=== PATIENT | female | born 1935 | race Caucasian/White ===

== ENCOUNTER 2016-12-17 09:53 | Inpatient (IN) | payer MEDICARE, BC ==
[2016-12-17 11:00] LABS: CHLORIDE,CL 106 mEq/L (98-106); SODIUM,NA 144 mEq/L (136-145)
--- NOTE | 2016-12-17 12:11 | EDM.PDOC ---
ED HPI GENERAL MEDICAL PROBLEM - General Chief Complaint: Back Pain or Injury Stated Complaint: low back pain, increased need of assistance Time Seen by Provider: 12/17/16 10:19 Source of Information: Reports: Patient, EMS, Family (sister) History Limitations: Reports: Altered Mental Status - History of Present Illness INITIAL COMMENTS - FREE TEXT/NARRATIVE: Pt was transferred here per ambulance from the [facility] in [place] as she is having significant pain in the lower back that is not controlled on her oral meds and this is also causing her to not be able to be up and care for self. SHe no longer qualifies to be basic care and she only has one sister in the area who would not be able to care for her. Sister feels that she should be admitted to [facility] when able. EMS report states that she was not able to get up out of bed and doesn't remember to take her meds. SIster has noted that she has been getting weaker over the last couple of weeks after falling and sustaining a L1 fracture and was seen in the ER in [place] and then fell again and has L2 compression fracture. She complains of pain depending on how she moves. Pt is confused as to place and time. She could tell me her name and she recognized her sister when she arrived. Does not understand why she was brought here or where she is. Onset: Gradual Duration: Day(s): Location: Reports: Back Associated Symptoms: Reports: Confusion - Related Data Allergies Allergy/AdvReac Type Severity Reaction Status Date / Time No Known Allergies Allergy Verified 12/17/16 09:44 Home Meds: Home Meds Ferrous Sulfate 325 mg PO DAILY 12/17/16 [History] Hydrocodone/Acetaminophen [[place] 5-325] 1 tab PO TID 12/17/16 [History] Magnesium Hydroxide [Milk of Magnesia] 15 ml PO DAILY PRN 12/17/16 [History] Naproxen Sodium [Aleve] 220 mg PO BID 12/17/16 [History] Polyethylene Glycol 3350 [Miralax] 17 gm PO DAILY 12/17/16 [History] Pravastatin [Pravachol] 20 mg PO DAILY 12/17/16 [History] Sennosides/Docusate Sodium [Stool Softener-Laxative] 8.6 mg PO ASDIRECTED [History] Sodium Phosphate 1 applic RECTAL DAILY PRN 12/17/16 [History] predniSONE [Prednisone] 5 mg PO DAILY 12/17/16 [History] Past Medical History HEENT History: Reports: Impaired Vision Cardiovascular History: Reports: High Cholesterol Gastrointestinal History: Reports: Chronic Constipation Genitourinary History: Reports: Urinary Incontinence Musculoskeletal History: Reports: Back Pain, Chronic, Fracture, Osteoarthritis, Other (See Below) Other Musculoskeletal History: Polymyalgia rheumiatica, L1-L2 compression fracture Psychiatric History: Reports: Dementia Hematologic History: Reports: Anemia Oncologic (Cancer) History: Reports: Breast Dermatologic History: Reports: Other (See Below) Other Dermatologic History: Toe ulcer right foot. - Past Surgical History Female Surgical History: Reports: None Musculoskeletal Surgical History: Reports: Other (See Below) Other Musculoskeletal Surgeries/Procedures:: cortisone injection to right knee in May 2016 Oncologic Surgical History: Reports: Mastectomy Social & Family History - Family History Family Medical History: Noncontributory - Tobacco Use Smoking Status *Q: Never Smoker - Recreational Drug Use Recreational Drug Use: No ED ROS GENERAL - Review of Systems Review Of Systems: See Below Constitutional: Denies: Fever, Chills HEENT: Reports: No Symptoms Respiratory: Denies: Shortness of Breath, Cough Cardiovascular: Denies: Chest Pain, Edema GI/Abdominal: Reports: Decreased Appetite. Denies: Abdominal Pain, Constipation , Diarrhea : Reports: Incontinence Musculoskeletal: Reports: Back Pain Skin: Reports: No Symptoms Neurological: Reports: Confusion Psychiatric: Reports: Confusion ED EXAM,LOWER BACK PAIN/INJURY - Physical Exam Exam: See Below Exam Limited By: No Limitations General Appearance: WD/WN, Mild Distress Ears: Normal External Exam, Normal Canal, Normal TMs Nose: Normal Inspection, Normal Mucosa Throat/Mouth: Normal Inspection, Normal Oropharynx, Normal Voice, No Airway Compromise Head: Atraumatic, Normocephalic Neck: Normal Inspection, Supple, Non-Tender, Full Range of Motion Respiratory/Chest: No Respiratory Distress, Lungs Clear, Normal Breath Sounds Cardiovascular: Normal Peripheral Pulses, Regular Rate, Rhythm, No Edema, No Murmur GI/Abdominal: Normal Bowel Sounds, Soft, Non-Tender Back Exam: Normal Inspection, Other (tender to low lumbar area with palpation.) Extremities: Normal Inspection, Normal Range of Motion, Non-Tender, No Pedal Edema, Normal Capillary Refill Neurological: Alert, Other (oriented to person.) Skin Exam: Warm, Dry, Intact Course - Vital Signs Last Recorded V/S: Last Vital Signs Temp 97.3 F 12/17/16 12:24 Pulse 97 12/17/16 12:24 Resp 18 12/17/16 12:24 BP 157/94 H 12/17/16 12:24 Pulse Ox 95 12/17/16 12:24 - Orders/Labs/Meds Labs: Laboratory Tests 12/17/16 12/17/16 12/17/16 Range/Units 10:45 10:45 11:20 WBC 7.4 (5.0-10.0) 10^3/uL RBC 4.31 (4.00-5.50) 10^6/uL Hgb 11.4 L (12.0-16.0) g/dL Hct 35.9 L (37.0-47.0) % MCV 83.3 (82.0-94.0) fL MCH 26.5 L (27.0-32.0) pg MCHC 31.8 L (33.0-38.0) g/dL RDW Coeff of Lulu 16.0 H (11.0-15.0) % Plt Count 362 (150-400) 10^3/uL Neut % (Auto) 74.6 (35-85) % Lymph % (Auto) 13.7 (10-55) % [place] % (Auto) 9.0 (0-16) % Eos % (Auto) 2.2 (0-5) % Baso % (Auto) 0.5 (0-3) % Neut # (Auto) 5.53 (1.80-7.00) 10^3/uL Lymph # (Auto) 1.02 (1.00-4.80) 10^3/uL [place] # (Auto) 0.67 (0.00-0.80) 10^3/uL Eos # (Auto) 0.16 (0.00-0.45) 10^3/uL Baso # (Auto) 0.04 10^3/uL Sodium 144 (136-145) mEq/L Potassium 3.4 L (3.5-5.0) mEq/L Chloride 106 (98-106) mEq/L Carbon Dioxide 30 (21-32) mmol/L BUN 14 (7-18) mg/dL Creatinine 0.6 (0.6-1.0) mg/dL Est Cr Clr Drug Dosing 66.17 mL/min Estimated GFR (MDRD) > 60 (>=60) mL/min Glucose 106 H (75-99) mg/dL Calcium 8.6 (8.4-10.1) mg/dL C-Reactive Protein 3.4 H (0.2-0.8) mg/dL Urine Color Yellow (YELLOW) Urine Appearance Slightly cloudy (CLEAR) Urine pH 7.5 (4.5-8.0) Ur Specific [place] 1.015 (1.003-1.020) Urine Protein Negative (NEGATIVE) mg/dL Urine Glucose (UA) Negative (NEGATIVE) mg/dL Urine Ketones Negative (NEGATIVE) mg/dL Urine Occult Blood Negative (NEGATIVE) Urine Nitrite Negative (NEGATIVE) Urine Bilirubin Negative (NEGATIVE) Urine Urobilinogen 0.2 (0.2-1.0) EU/dL Ur Leukocyte Esterase Negative (NEGATIVE) Urine RBC Not seen (0-5) /HPF Urine WBC Not seen (0-5) /HPF Ur Epithelial Cells Few H (NOT SEEN) /HPF Amorphous Sediment Many H (NOT SEEN) /HPF Departure - Departure Time of Disposition: 12:17 Disposition: Admitted As Inpatient 66 Condition: Good Clinical Impression: Inadequate pain control Compression fracture of first lumbar vertebra Qualifiers: Encounter type: subsequent encounter Fracture type: closed Fracture healing: with delayed healing Qualified Code(s): S32.010G - Wedge compression fracture of first lumbar vertebra, subsequent encounter for fracture with delayed healing Compression fracture of L2 lumbar vertebra Qualifiers: Encounter type: subsequent encounter Fracture type: closed Fracture healing: with delayed healing Qualified Code(s): S32.020G - Wedge compression fracture of second lumbar vertebra, subsequent encounter for fracture with delayed healing - Discharge Information - Problem List & Annotations (1) Compression fracture of L2 lumbar vertebra SNOMED Code(s): 65177933348991175 Code(s): S32.020A - WEDGE COMPRESSION FRACTURE OF SECOND LUMBAR VERTEBRA, INIT Status: Acute Priority: High Current Visit: Yes Qualifiers: Encounter type: subsequent encounter Fracture type: closed Fracture healing: with delayed healing Qualified Code(s): S32.020G - Wedge compression fracture of second lumbar vertebra, subsequent encounter for fracture with delayed healing (2) Compression fracture of first lumbar vertebra SNOMED Code(s): 606808771 Code(s): S32.010A - WEDGE COMPRESSION FRACTURE OF FIRST LUMBAR VERTEBRA, INIT Status: Acute Priority: High Current Visit: Yes Qualifiers: Encounter type: subsequent encounter Fracture type: closed Fracture healing: with delayed healing Qualified Code(s): S32.010G - Wedge compression fracture of first lumbar vertebra, subsequent encounter for fracture with delayed healing (3) Inadequate pain control SNOMED Code(s): 62578431 Code(s): R52 - PAIN, UNSPECIFIED Status: Acute Priority: High Current Visit: Yes - Assessment/Plan Admission H&P: Please use this note as an admission H&P Plan: admit to acute care to get pain control with IV meds Plan on transferring to [facility] when bed available as she can not return to [facility]
[2016-12-17] MEDS ORDERED: Sodium Chloride 0.9% 10 ML Syringe FLUSH PRN (12:34)
[2016-12-17] MEDS ORDERED: Magnesium Hydroxide 400 MG/5 ML Susp 30 ML Cup PO PRN (12:34)
[2016-12-17] MEDS ORDERED: Acetaminophen 325 MG Tab PO PRN (12:34)
[2016-12-17] MEDS ORDERED: fentaNYL 100 MCG/2 ML SDV IVPUSH ONE (12:35)
[2016-12-17] MEDS: Enoxaparin 30 MG/0.3 ML Syringe SUBCUT SCH (13:43)
[2016-12-17] MEDS: fentaNYL 100 MCG/2 ML SDV IVPUSH SCH (19:31)
[2016-12-17] MEDS: Simvastatin 10 MG Tab PO SCH (19:34)
[2016-12-18] MEDS: Polyethylene Glycol 3350 Powder 17 GM Packet PO SCH (08:21)
[2016-12-18] MEDS: Ferrous Sulfate 324 MG Tab.EC PO SCH (08:21)
[2016-12-18] MEDS: Enoxaparin 30 MG/0.3 ML Syringe SUBCUT SCH (08:21)
[2016-12-18] MEDS: predniSONE 5 MG Tab PO SCH (08:21)
[2016-12-18] MEDS: fentaNYL 100 MCG/2 ML SDV IVPUSH SCH ×2 (08:22→20:03)
[2016-12-18] MEDS ORDERED: Tuberculin, PPD 5 Units/0.1 ML 1 ML MDV IDERM ONE (10:38)
--- NOTE | 2016-12-18 12:54 | PCM.PN ---
- General Info Date of Service: 12/18/16 Admission Dx/Problem (Free Text): Back Pain Functional Status: Reports: Pain Controlled, Tolerating Diet, Ambulating (short distances) - Review of Systems General: Reports: Weakness. Denies: Fever, Fatigue HEENT: Reports: No Symptoms Pulmonary: Reports: No Symptoms Cardiovascular: Reports: No Symptoms Gastrointestinal: Reports: No Symptoms Genitourinary: Reports: No Symptoms Musculoskeletal: Reports: Back Pain Skin: Reports: No Symptoms Neurological: Reports: Confusion - Patient Data Vitals - Most Recent: Last Vital Signs Temp 97.6 F 12/18/16 07:36 Pulse 86 12/18/16 07:36 Resp 16 12/18/16 07:36 BP 149/83 H 12/18/16 07:36 Pulse Ox 96 12/18/16 07:36 Weight - Most Recent: 144 lb 6.4 oz I&O - Last 24 Hours: Intake & Output 12/17/16 12/18/16 12/18/16 22:59 06:59 14:59 Intake Total 300 Balance 300 Med Orders - Current: Current Medications Acetaminophen (Tylenol) 650 mg PO Q4H PRN PRN Reason: Pain (Mild 1-3)/fever Enoxaparin Sodium (Lovenox) 30 mg SUBCUT Q24H [facility] Last Admin: 12/18/16 08:21 Dose: 30 mg Fentanyl (Sublimaze) 25 mcg IVPUSH Q12H [facility] Last Admin: 12/18/16 08:22 Dose: 25 mcg Ferrous Sulfate (Ferrous Sulfate) 324 mg PO DAILY [facility] Last Admin: 12/18/16 08:21 Dose: 324 mg Magnesium Hydroxide (Milk Of Magnesia) 15 ml PO DAILY PRN PRN Reason: Constipation Polyethylene Glycol (Miralax) 17 gm PO DAILY [facility] Last Admin: 12/18/16 08:21 Dose: 17 gm Prednisone (Prednisone) 5 mg PO DAILY [facility] Last Admin: 12/18/16 08:21 Dose: 5 mg Senna/Docusate Sodium (Senna Plus) 1 tab PO DAILY [facility] Last Admin: 12/18/16 08:21 Dose: 1 tab Simvastatin (Zocor) 10 mg PO BEDTIME [facility] Last Admin: 12/17/16 19:34 Dose: 10 mg Sodium Chloride (Saline Flush) 10 ml FLUSH ASDIRECTED PRN PRN Reason: Keep Vein Open Discontinued Medications Fentanyl (Sublimaze) 25 mcg IVPUSH ONETIME ONE Stop: 12/17/16 12:36 Last Admin: 12/17/16 13:46 Dose: Not Given Tuberculin PPD (Aplisol) 5 unit IDERM ONETIME ONE Stop: 12/18/16 10:39 Last Admin: 12/18/16 11:44 Dose: 5 unit - Exam General: Alert, Oriented (oriented to person only) HEENT: Mucous Membr. Moist/[place] Neck: Supple Lungs: Clear to Auscultation, Normal Respiratory Effort Cardiovascular: Regular Rate, Regular Rhythm GI/Abdominal Exam: Normal Bowel Sounds, Soft, Non-Tender Back Exam: Decreased Range of Motion, Vertebral Tenderness Extremities: Normal Inspection, No Pedal Edema Skin: Warm, Dry Neurological: No New Focal Deficit Psy/Mental Status: Alert, Other (inappropriate responses to conversation) - Problem List & Annotations (1) Compression fracture of L2 lumbar vertebra SNOMED Code(s): 93714024269627173 Code(s): S32.020A - WEDGE COMPRESSION FRACTURE OF SECOND LUMBAR VERTEBRA, INIT Status: Acute Priority: High Current Visit: Yes Qualifiers: Encounter type: subsequent encounter Fracture type: closed Fracture healing: with delayed healing Qualified Code(s): S32.020G - Wedge compression fracture of second lumbar vertebra, subsequent encounter for fracture with delayed healing (2) Compression fracture of first lumbar vertebra SNOMED Code(s): 946846433 Code(s): S32.010A - WEDGE COMPRESSION FRACTURE OF FIRST LUMBAR VERTEBRA, INIT Status: Acute Priority: High Current Visit: Yes Qualifiers: Encounter type: subsequent encounter Fracture type: closed Fracture healing: with delayed healing Qualified Code(s): S32.010G - Wedge compression fracture of first lumbar vertebra, subsequent encounter for fracture with delayed healing - Problem List Review Problem List Initiated/Reviewed/Updated: Yes - Assessment Assessment:: L1 Compression fracture L2 Compression fracture - Plan Plan:: Patient resting well while in chair. Does have increased pain with any transfers as noted per nursing staff. Patient is oriented to person only and when asked specific questions related to her history of falls or pain or living situation, has inappropriate comments. Was having more difficult caring for herself and transferring due to compression fractures but also due to history of dementia. Unable to be still in the basic care facility due to this. She is currently receiving IV Fentanyl and staff has noted this has allowed for easier movement for the patient. Otherwise, denies any other ROS complaints. Will continue with PT evaluation today and pain control. [facility].
[2016-12-18] MEDS: Simvastatin 10 MG Tab PO SCH (20:04)
[2016-12-18] MEDS: Acetaminophen/HYDROcodone 325-5 MG Tab PO PRN (23:53)
[2016-12-19] MEDS: Enoxaparin 30 MG/0.3 ML Syringe SUBCUT SCH (07:39)
[2016-12-19] MEDS: fentaNYL 100 MCG/2 ML SDV IVPUSH SCH ×2 (07:39→19:35)
[2016-12-19] MEDS: Ferrous Sulfate 324 MG Tab.EC PO SCH (07:39)
[2016-12-19] MEDS: predniSONE 5 MG Tab PO SCH (07:39)
[2016-12-19] MEDS: Polyethylene Glycol 3350 Powder 17 GM Packet PO SCH (07:41)
--- NOTE | 2016-12-19 09:31 | PCM.PN ---
- General Info Date of Service: 12/19/16 Functional Status: Reports: Tolerating Diet, Ambulating (Currently after examination. ) - Review of Systems General: Reports: No Symptoms HEENT: Reports: No Symptoms Pulmonary: Reports: No Symptoms Cardiovascular: Reports: No Symptoms Gastrointestinal: Reports: No Symptoms Genitourinary: Reports: No Symptoms Musculoskeletal: Reports: Back Pain Skin: Reports: No Symptoms Neurological: Reports: No Symptoms Psychiatric: Reports: No Symptoms - Patient Data Vitals - Most Recent: Last Vital Signs Temp 97.2 F 12/19/16 07:51 Pulse 86 12/19/16 07:51 Resp 18 12/19/16 07:51 BP 158/81 H 12/19/16 07:51 Pulse Ox 94 L 12/19/16 07:51 Weight - Most Recent: 144 lb 6.4 oz Med Orders - Current: Current Medications Acetaminophen (Tylenol) 650 mg PO Q4H PRN PRN Reason: Pain (Mild 1-3)/fever Hydrocodone Bitart/Acetaminophen ([place] 325-5 Mg) 1 - 2 tab PO Q6H PRN PRN Reason: Pain Last Admin: 12/18/16 23:53 Dose: 1 tab Enoxaparin Sodium (Lovenox) 30 mg SUBCUT Q24H [facility] Last Admin: 12/19/16 07:39 Dose: 30 mg Fentanyl (Sublimaze) 25 mcg IVPUSH Q12H [facility] Last Admin: 12/19/16 07:39 Dose: 25 mcg Ferrous Sulfate (Ferrous Sulfate) 324 mg PO DAILY [facility] Last Admin: 12/19/16 07:39 Dose: 324 mg Magnesium Hydroxide (Milk Of Magnesia) 15 ml PO DAILY PRN PRN Reason: Constipation Polyethylene Glycol (Miralax) 17 gm PO DAILY [facility] Last Admin: 12/19/16 07:41 Dose: Not Given Prednisone (Prednisone) 5 mg PO DAILY [facility] Last Admin: 12/19/16 07:39 Dose: 5 mg Senna/Docusate Sodium (Senna Plus) 1 tab PO DAILY [facility] Last Admin: 12/19/16 07:41 Dose: 1 tab Simvastatin (Zocor) 10 mg PO BEDTIME [facility] Last Admin: 12/18/16 20:04 Dose: 10 mg Sodium Chloride (Saline Flush) 10 ml FLUSH ASDIRECTED PRN PRN Reason: Keep Vein Open Discontinued Medications Fentanyl (Sublimaze) 25 mcg IVPUSH ONETIME ONE Stop: 12/17/16 12:36 Last Admin: 12/17/16 13:46 Dose: Not Given Tuberculin PPD (Aplisol) 5 unit IDERM ONETIME ONE Stop: 12/18/16 10:39 Last Admin: 12/18/16 11:44 Dose: 5 unit - Exam General: Alert, Cooperative, No Acute Distress, Other (not oriented. History of dementia. ) Neck: Supple Lungs: Clear to Auscultation, Normal Respiratory Effort Cardiovascular: Regular Rate, Regular Rhythm GI/Abdominal Exam: Normal Bowel Sounds, Soft, Non-Tender, No Distention Back Exam: Normal Inspection, Decreased Range of Motion, Vertebral Tenderness ( mild lower lumbar). No: Muscle Spasm Extremities: Normal Inspection, Normal Range of Motion, Non-Tender, No Pedal Edema, Normal Capillary Refill Peripheral Pulses: 2+: Posterior Tibial (L), Posterior Tibial (R), Dorsalis Pedis (L), Dorsalis Pedis (R) Skin: Warm, Dry, Intact Neurological: No New Focal Deficit Psy/Mental Status: Alert, Normal Affect, Normal Mood - Problem List Review Problem List Initiated/Reviewed/Updated: Yes - My Orders Last 24 Hours: My Active Orders 12/18/16 23:38 Acetaminophen/HYDROcodone [[place] 325-5 MG] 1 - 2 tab PO Q6H PRN 12/19/16 05:00 BMP [BASIC METABOLIC PANEL,BMP] [CHEM] DAILY CBC WITH AUTO DIFF [HEME] DAILY 12/19/16 07:53 K Pad [Heat Therapy] [OM.PC] Routine 12/20/16 05:00 BMP [BASIC METABOLIC PANEL,BMP] [CHEM] DAILY CBC WITH AUTO DIFF [HEME] DAILY 12/21/16 05:00 BMP [BASIC METABOLIC PANEL,BMP] [CHEM] DAILY CBC WITH AUTO DIFF [HEME] DAILY - Assessment Assessment:: L1 Compression fracture L2 Compression fracture - Plan Plan:: Patient resting well while in chair. Does have increased pain with any transfers as noted per nursing staff. Patient is oriented to person only and when asked specific questions related to her history of falls or pain or living situation, has inappropriate comments. Was having more difficult caring for herself and transferring due to compression fractures but also due to history of dementia. Unable to be still in the basic care facility due to this. She is currently receiving IV Fentanyl and staff has noted this has allowed for easier movement for the patient. Otherwise, denies any other ROS complaints. Will continue with PT evaluation today and pain control. [facility]. 12/19/2016 [id number] This patient is a pleasant 81 year old female that was admitted for compression fractures of the lumbar spine. The patient due to pain has been unable to take care of herself at home or in a basic care environment. I did receive a phone call about 2am this morning about this patient. I was instructed that her pain was not being controlled this morning with just the Fentanyl alone. They reported the Fentanyl was initially working, then was wearing off. I ordered her [place] as well. Today, the patient is sitting in bed. She appears comfortable. Although, movement of sitting up in bed does increase her pain. She denies urinary/bowel incontinence. She denies saddle parathesia. She denies any numbness of tingling or loss of function of extremities. I did review labs which are unremarkable. The patient with assistance after my exam was able to ambulate in the hallway. Will continue her admit for pain control in attempt to get her more comfortable. Will also continue admit for [facility] placement as she is unsafe to return to her current living situation. Patient is disoriented. She said the year is 9,000 something, and does not know her location.
[2016-12-19 09:59] LABS: CHLORIDE,CL 103 mEq/L (98-106); SODIUM,NA 141 mEq/L (136-145)
[2016-12-19] MEDS: Acetaminophen/HYDROcodone 325-5 MG Tab PO PRN (13:09)
[2016-12-19] MEDS: Simvastatin 10 MG Tab PO SCH (19:35)
[2016-12-20] MEDS: fentaNYL 100 MCG/2 ML SDV IVPUSH SCH ×2 (07:59→19:38)
[2016-12-20] MEDS: Ferrous Sulfate 324 MG Tab.EC PO SCH (07:59)
[2016-12-20] MEDS: predniSONE 5 MG Tab PO SCH (07:59)
[2016-12-20] MEDS: Polyethylene Glycol 3350 Powder 17 GM Packet PO SCH (07:59)
[2016-12-20] MEDS: Enoxaparin 30 MG/0.3 ML Syringe SUBCUT SCH (07:59)
[2016-12-20 08:33] LABS: CHLORIDE,CL 105 mEq/L (98-106); SODIUM,NA 143 mEq/L (136-145)
--- NOTE | 2016-12-20 10:02 | PCM.PN ---
- General Info Date of Service: 12/20/16 Functional Status: Reports: Pain Controlled, Tolerating Diet, Ambulating (with assistance), Other (Sitting in chair at the nurses station. ) - Review of Systems General: Reports: No Symptoms HEENT: Reports: No Symptoms Pulmonary: Reports: No Symptoms Cardiovascular: Reports: No Symptoms Gastrointestinal: Reports: No Symptoms Genitourinary: Reports: No Symptoms Musculoskeletal: Reports: No Symptoms Skin: Reports: No Symptoms Neurological: Reports: No Symptoms (chronic confusion. ) Psychiatric: Reports: No Symptoms - Patient Data Vitals - Most Recent: Last Vital Signs Temp 98.2 F 12/20/16 08:00 Pulse 82 12/20/16 08:00 Resp 18 12/20/16 08:00 BP 112/62 12/20/16 08:00 Pulse Ox 96 12/20/16 08:00 Weight - Most Recent: 144 lb 6.4 oz Lab Results Last 24 Hours: Laboratory Results - last 24 hr 12/19/16 12/19/16 12/20/16 Range/Units 05:00 05:00 05:00 WBC 9.0 6.7 (5.0-10.0) 10^3/uL RBC 4.52 4.51 (4.00-5.50) 10^6/uL Hgb 12.2 12.1 (12.0-16.0) g/dL Hct 38.1 37.9 (37.0-47.0) % MCV 84.3 84.0 (82.0-94.0) fL MCH 27.0 26.8 L (27.0-32.0) pg MCHC 32.0 L 31.9 L (33.0-38.0) g/dL RDW Coeff of Lulu 16.3 H 16.2 H (11.0-15.0) % Plt Count 398 398 (150-400) 10^3/uL Neut % (Auto) 79.8 67.0 (35-85) % Lymph % (Auto) 10.5 20.0 (10-55) % [place] % (Auto) 7.6 9.8 (0-16) % Eos % (Auto) 1.7 2.5 (0-5) % Baso % (Auto) 0.4 0.7 (0-3) % Neut # (Auto) 7.15 H 4.49 (1.80-7.00) 10^3/uL Lymph # (Auto) 0.94 L 1.34 (1.00-4.80) 10^3/uL [place] # (Auto) 0.68 0.66 (0.00-0.80) 10^3/uL Eos # (Auto) 0.15 0.17 (0.00-0.45) 10^3/uL Baso # (Auto) 0.04 0.05 10^3/uL Sodium 141 (136-145) mEq/L Potassium 3.6 (3.5-5.0) mEq/L Chloride 103 (98-106) mEq/L Carbon Dioxide 27 (21-32) mmol/L BUN 16 (7-18) mg/dL Creatinine 0.8 (0.6-1.0) mg/dL Est Cr Clr Drug Dosing 49.63 mL/min Estimated GFR (MDRD) > 60 (>=60) mL/min Glucose 122 H (75-99) mg/dL Calcium 8.9 (8.4-10.1) mg/dL 12/20/16 Range/Units 05:00 WBC (5.0-10.0) 10^3/uL RBC (4.00-5.50) 10^6/uL Hgb (12.0-16.0) g/dL Hct (37.0-47.0) % MCV (82.0-94.0) fL MCH (27.0-32.0) pg MCHC (33.0-38.0) g/dL RDW Coeff of Lulu (11.0-15.0) % Plt Count (150-400) 10^3/uL Neut % (Auto) (35-85) % Lymph % (Auto) (10-55) % [place] % (Auto) (0-16) % Eos % (Auto) (0-5) % Baso % (Auto) (0-3) % Neut # (Auto) (1.80-7.00) 10^3/uL Lymph # (Auto) (1.00-4.80) 10^3/uL [place] # (Auto) (0.00-0.80) 10^3/uL Eos # (Auto) (0.00-0.45) 10^3/uL Baso # (Auto) 10^3/uL Sodium 143 (136-145) mEq/L Potassium 3.4 L (3.5-5.0) mEq/L Chloride 105 (98-106) mEq/L Carbon Dioxide 29 (21-32) mmol/L BUN 12 (7-18) mg/dL Creatinine 0.6 (0.6-1.0) mg/dL Est Cr Clr Drug Dosing 66.17 mL/min Estimated GFR (MDRD) > 60 (>=60) mL/min Glucose 112 H (75-99) mg/dL Calcium 9.1 (8.4-10.1) mg/dL Med Orders - Current: Current Medications Acetaminophen (Tylenol) 650 mg PO Q4H PRN PRN Reason: Pain (Mild 1-3)/fever Hydrocodone Bitart/Acetaminophen ([place] 325-5 Mg) 1 - 2 tab PO Q6H PRN PRN Reason: Pain Last Admin: 12/19/16 13:09 Dose: 2 tab Enoxaparin Sodium (Lovenox) 30 mg SUBCUT Q24H [facility] Last Admin: 12/20/16 07:59 Dose: 30 mg Fentanyl (Sublimaze) 25 mcg IVPUSH Q12H [facility] Last Admin: 12/20/16 07:59 Dose: 25 mcg Ferrous Sulfate (Ferrous Sulfate) 324 mg PO DAILY [facility] Last Admin: 12/20/16 07:59 Dose: 324 mg Magnesium Hydroxide (Milk Of Magnesia) 15 ml PO DAILY PRN PRN Reason: Constipation Polyethylene Glycol (Miralax) 17 gm PO DAILY [facility] Last Admin: 12/20/16 07:59 Dose: 17 gm Prednisone (Prednisone) 5 mg PO DAILY [facility] Last Admin: 12/20/16 07:59 Dose: 5 mg Senna/Docusate Sodium (Senna Plus) 1 tab PO DAILY [facility] Last Admin: 12/20/16 07:59 Dose: 1 tab Simvastatin (Zocor) 10 mg PO BEDTIME [facility] Last Admin: 12/19/16 19:35 Dose: 10 mg Sodium Chloride (Saline Flush) 10 ml FLUSH ASDIRECTED PRN PRN Reason: Keep Vein Open Discontinued Medications Fentanyl (Sublimaze) 25 mcg IVPUSH ONETIME ONE Stop: 12/17/16 12:36 Last Admin: 12/17/16 13:46 Dose: Not Given Tuberculin PPD (Aplisol) 5 unit IDERM ONETIME ONE Stop: 12/18/16 10:39 Last Admin: 12/18/16 11:44 Dose: 5 unit - Exam General: Alert, Oriented, Cooperative, No Acute Distress Lungs: Clear to Auscultation, Normal Respiratory Effort Cardiovascular: Regular Rate, Regular Rhythm, No Murmurs Back Exam: Normal Inspection, Full Range of Motion, Vertebral Tenderness (mild lumbar, but improved since yesterday. ). No: CVA Tenderness (L), CVA Tenderness (R), Decreased Range of Motion, Muscle Spasm, Paraspinal Tenderness Extremities: Normal Inspection, Normal Range of Motion, Non-Tender, No Pedal Edema, Normal Capillary Refill Peripheral Pulses: 2+: Posterior Tibial (L), Posterior Tibial (R) Skin: Warm, Dry, Intact Neurological: No New Focal Deficit, Other (Oriented to person. Not place or year. Chronic for patient. ) Psy/Mental Status: Alert, Normal Affect, Normal Mood - Problem List Review Problem List Initiated/Reviewed/Updated: Yes - My Orders Last 24 Hours: My Active Orders 12/21/16 05:00 BMP [BASIC METABOLIC PANEL,BMP] [CHEM] DAILY CBC WITH AUTO DIFF [HEME] DAILY - Assessment Assessment:: L1 Compression fracture L2 Compression fracture - Plan Plan:: Patient resting well while in chair. Does have increased pain with any transfers as noted per nursing staff. Patient is oriented to person only and when asked specific questions related to her history of falls or pain or living situation, has inappropriate comments. Was having more difficult caring for herself and transferring due to compression fractures but also due to history of dementia. Unable to be still in the basic care facility due to this. She is currently receiving IV Fentanyl and staff has noted this has allowed for easier movement for the patient. Otherwise, denies any other ROS complaints. Will continue with PT evaluation today and pain control. Plan to transfer to [facility] on Wednesday. 12/19/2016 0835 This patient is a pleasant 81 year old female that was admitted for compression fractures of the lumbar spine. The patient due to pain has been unable to take care of herself at home or in a basic care environment. I did receive a phone call about 2am this morning about this patient. I was instructed that her pain was not being controlled this morning with just the Fentanyl alone. They reported the Fentanyl was initially working, then was wearing off. I ordered her [employer] as well. Today, the patient is sitting in bed. She appears comfortable. Although, movement of sitting up in bed does increase her pain. She denies urinary/bowel incontinence. She denies saddle parathesia. She denies any numbness of tingling or loss of function of extremities. I did review labs which are unremarkable. The patient with assistance after my exam was able to ambulate in the hallway. Will continue her admit for pain control in attempt to get her more comfortable. Will also continue admit for assisted placement as she is unsafe to return to her current living situation. Patient is disoriented. She said the year is 9,000 something, and does not know her location. 12/20/2016 0900 This patient is a pleasant 81 year old female that was admitted for compression fractures of the lumbar spine. The patient due to pain has been unable to take care of herself at home or in a basic care environment. The patient today is sitting in the chair at the nurses station. She is interacting with staff, reading, and getting her nails done. She appears comfortable. She does report her pain has improved today. She denies urinary/bowel incontinence. She denies saddle parathesia. She denies any numbness of tingling or loss of function of extremities. I did review labs which are unremarkable. The patient is able to ambulate with assistance. Will continue her admit for pain control in attempt to get her more comfortable. Will also continue admit for assisted placement as she is unsafe to return to her current living situation. Patient is disoriented. This is patient chronic baseline.
[2016-12-20] MEDS: Acetaminophen/HYDROcodone 325-5 MG Tab PO PRN (11:25)
[2016-12-20] MEDS: Simvastatin 10 MG Tab PO SCH (19:39)
[2016-12-21] MEDS: predniSONE 5 MG Tab PO SCH (07:46)
[2016-12-21] MEDS: Enoxaparin 30 MG/0.3 ML Syringe SUBCUT SCH (07:46)
[2016-12-21] MEDS: Ferrous Sulfate 324 MG Tab.EC PO SCH (07:46)
[2016-12-21] MEDS: Polyethylene Glycol 3350 Powder 17 GM Packet PO SCH (07:46)
[2016-12-21] MEDS: fentaNYL 100 MCG/2 ML SDV IVPUSH SCH ×2 (07:46→19:30)
[2016-12-21 08:21] LABS: CHLORIDE,CL 104 mEq/L (98-106); SODIUM,NA 139 mEq/L (136-145)
--- NOTE | 2016-12-21 10:58 | PCM.PN ---
- General Info Functional Status: Reports: Pain Controlled - Review of Systems General: Reports: No Symptoms HEENT: Reports: No Symptoms Pulmonary: Reports: No Symptoms Cardiovascular: Reports: No Symptoms Gastrointestinal: Reports: No Symptoms Genitourinary: Reports: No Symptoms Musculoskeletal: Reports: Back Pain Skin: Reports: No Symptoms Neurological: Reports: Confusion (chronic, unchanged. ) Psychiatric: Reports: No Symptoms - Patient Data Vitals - Most Recent: Last Vital Signs Temp 98.7 F 12/21/16 08:00 Pulse 86 12/21/16 08:00 Resp 16 12/21/16 08:00 BP 157/92 H 12/21/16 08:00 Pulse Ox 97 12/21/16 08:00 Weight - Most Recent: 144 lb 6.4 oz Lab Results Last 24 Hours: Laboratory Results - last 24 hr 12/21/16 12/21/16 Range/Units 07:55 07:55 WBC 8.0 (5.0-10.0) 10^3/uL RBC 4.37 (4.00-5.50) 10^6/uL Hgb 11.7 L (12.0-16.0) g/dL Hct 36.9 L (37.0-47.0) % MCV 84.4 (82.0-94.0) fL MCH 26.8 L (27.0-32.0) pg MCHC 31.7 L (33.0-38.0) g/dL RDW Coeff of Lulu 16.2 H (11.0-15.0) % Plt Count 374 (150-400) 10^3/uL Neut % (Auto) 71.2 (35-85) % Lymph % (Auto) 15.8 (10-55) % [place] % (Auto) 9.8 (0-16) % Eos % (Auto) 2.6 (0-5) % Baso % (Auto) 0.6 (0-3) % Neut # (Auto) 5.71 (1.80-7.00) 10^3/uL Lymph # (Auto) 1.27 (1.00-4.80) 10^3/uL [place] # (Auto) 0.79 (0.00-0.80) 10^3/uL Eos # (Auto) 0.21 (0.00-0.45) 10^3/uL Baso # (Auto) 0.05 10^3/uL Sodium 139 (136-145) mEq/L Potassium 3.5 (3.5-5.0) mEq/L Chloride 104 (98-106) mEq/L Carbon Dioxide 29 (21-32) mmol/L BUN 20 H D (7-18) mg/dL Creatinine 0.7 (0.6-1.0) mg/dL Est Cr Clr Drug Dosing 56.72 mL/min Estimated GFR (MDRD) > 60 (>=60) mL/min Glucose 105 H (75-99) mg/dL Calcium 9.1 (8.4-10.1) mg/dL Med Orders - Current: Current Medications Acetaminophen (Tylenol) 650 mg PO Q4H PRN PRN Reason: Pain (Mild 1-3)/fever Hydrocodone Bitart/Acetaminophen ([place] 325-5 Mg) 1 - 2 tab PO Q6H PRN PRN Reason: Pain Last Admin: 12/20/16 11:25 Dose: 2 tab Enoxaparin Sodium (Lovenox) 30 mg SUBCUT Q24H [facility] Last Admin: 12/21/16 07:46 Dose: 30 mg Fentanyl (Sublimaze) 25 mcg IVPUSH Q12H [facility] Last Admin: 12/21/16 07:46 Dose: 25 mcg Ferrous Sulfate (Ferrous Sulfate) 324 mg PO DAILY [facility] Last Admin: 12/21/16 07:46 Dose: 324 mg Magnesium Hydroxide (Milk Of Magnesia) 15 ml PO DAILY PRN PRN Reason: Constipation Polyethylene Glycol (Miralax) 17 gm PO DAILY [facility] Last Admin: 12/21/16 07:46 Dose: 17 gm Prednisone (Prednisone) 5 mg PO DAILY [facility] Last Admin: 12/21/16 07:46 Dose: 5 mg Senna/Docusate Sodium (Senna Plus) 1 tab PO DAILY [facility] Last Admin: 12/21/16 07:46 Dose: 1 tab Simvastatin (Zocor) 10 mg PO BEDTIME [facility] Last Admin: 12/20/16 19:39 Dose: 10 mg Sodium Chloride (Saline Flush) 10 ml FLUSH ASDIRECTED PRN PRN Reason: Keep Vein Open Discontinued Medications Fentanyl (Sublimaze) 25 mcg IVPUSH ONETIME ONE Stop: 12/17/16 12:36 Last Admin: 12/17/16 13:46 Dose: Not Given Tuberculin PPD (Aplisol) 5 unit IDERM ONETIME ONE Stop: 12/18/16 10:39 Last Admin: 12/18/16 11:44 Dose: 5 unit - Exam General: Alert, Cooperative, No Acute Distress HEENT: Pupils Equal Neck: Supple Lungs: Clear to Auscultation, Normal Respiratory Effort Cardiovascular: Regular Rate, Regular Rhythm, No Murmurs Back Exam: Normal Inspection, Paraspinal Tenderness (mild right and left lumbar. ), Vertebral Tenderness (mild lumbar. ) Extremities: Normal Inspection, Normal Range of Motion, Non-Tender, No Pedal Edema, Normal Capillary Refill Peripheral Pulses: 2+: Posterior Tibial (L), Posterior Tibial (R) Skin: Warm, Dry, Intact Neurological: No New Focal Deficit Psy/Mental Status: Alert, Normal Affect, Normal Mood - Problem List Review Problem List Initiated/Reviewed/Updated: Yes - Assessment Assessment:: L1 Compression fracture L2 Compression fracture - Plan Plan:: Patient resting well while in chair. Does have increased pain with any transfers as noted per nursing staff. Patient is oriented to person only and when asked specific questions related to her history of falls or pain or living situation, has inappropriate comments. Was having more difficult caring for herself and transferring due to compression fractures but also due to history of dementia. Unable to be in the basic care facility due to this. She is currently receiving IV Fentanyl and staff has noted this has allowed for easier movement for the patient. Otherwise, denies any other ROS complaints. Will continue with PT evaluation today and pain control. Plan to transfer to [facility]ial on Wednesday. 12/19/2016 0835 This patient is a pleasant 81 year old female that was admitted for compression fractures of the lumbar spine. The patient due to pain has been unable to take care of herself at home or in a basic care environment. I did receive a phone call about 2am this morning about this patient. I was instructed that her pain was not being controlled this morning with just the Fentanyl alone. They reported the Fentanyl was initially working, then was wearing off. I ordered her [place] as well. Today, the patient is sitting in bed. She appears comfortable. Although, movement of sitting up in bed does increase her pain. She denies urinary/bowel incontinence. She denies saddle parathesia. She denies any numbness of tingling or loss of function of extremities. I did review labs which are unremarkable. The patient with assistance after my exam was able to ambulate in the hallway. Will continue her admit for pain control in attempt to get her more comfortable. Will also continue admit for prison placement as she is unsafe to return to her current living situation. Patient is disoriented. She said the year is 9,000 something, and does not know her location. 12/20/16 This patient is sitting out at nurses station desk. She reports her pain is improving. She is talking with staff. She is alert and oriented to self. Not oriented to place or time, which is baseline. She appears comfortable. She denies urinary/bowel incontinence. She denies saddle parathesia. She denies any numbness of tingling or loss of function of extremities. I did review labs which are unremarkable. The patient with assistance after my exam was able to ambulate in the hallway. Will continue her admit for pain control in attempt to get her more comfortable. Will also continue admit for prison placement as she is unsafe to return to her current living situation. 12/21/16 1000 This patient is sitting in the chair in her room. She reports her pain has increased some in her lower back, but still okay she says. She is alert and oriented to self. Not oriented to place or time, which is baseline. She appears comfortable. She denies urinary/bowel incontinence. She denies saddle parathesia. She denies any numbness of tingling or loss of function of extremities. I did review labs which are unremarkable. The patient with assistance after my exam was able to ambulate in the hallway. Will continue her admit for pain control in attempt to get her more comfortable. Will also continue admit for prison placement as she is unsafe to return to her current living situation.
[2016-12-21] MEDS: Acetaminophen/HYDROcodone 325-5 MG Tab PO PRN (11:05)
[2016-12-21] MEDS: Simvastatin 10 MG Tab PO SCH (19:31)
[2016-12-22 07:29] VITALS: BP 161/98
[2016-12-22] MEDS: Enoxaparin 30 MG/0.3 ML Syringe SUBCUT SCH (07:59)
[2016-12-22] MEDS: Polyethylene Glycol 3350 Powder 17 GM Packet PO SCH (07:59)
[2016-12-22] MEDS: Ferrous Sulfate 324 MG Tab.EC PO SCH (07:59)
[2016-12-22] MEDS: predniSONE 5 MG Tab PO SCH (07:59)
[2016-12-22] MEDS: Acetaminophen/HYDROcodone 325-5 MG Tab PO PRN (08:00)
[2016-12-22] MEDS: fentaNYL 100 MCG/2 ML SDV IVPUSH SCH (08:01)
--- NOTE | 2016-12-23 08:51 | PCM.DCSUM1 ---
Discharge Summary - Hospital Course Free Text/Narrative:: Patient presented to ED per EMS with increased back pain due to compression fractures and inability to control her pain or care for herself. She had been living in a basic care facility in [place] and has increasing difficulty ambulating about due to pain. Staff there unable to provide the assistance she needs or control her pain with oral pain meds. Has only one sister who is unable to care for her and family feels she needs to be in a senior living. Patient also has a history of dementia, only oriented to person. Does not remember to take her meds. Has fallen x2 and each time sustained a compression fracture in L1 and L2. - Discharge Data Discharge Date: 12/22/16 Discharge Disposition: DC/Tfer to Intermediate Care [facility] Condition: Fair - Discharge Diagnosis/Problem(s) (1) Compression fracture of L2 lumbar vertebra SNOMED Code(s): [id number] ICD Code: S32.020A - WEDGE COMPRESSION FRACTURE OF SECOND LUMBAR VERTEBRA, INIT Status: Acute Priority: High Qualifiers: Encounter type: subsequent encounter Fracture type: closed Fracture healing: with delayed healing Qualified Code(s): S32.020G - Wedge compression fracture of second lumbar vertebra, subsequent encounter for fracture with delayed healing (2) Compression fracture of first lumbar vertebra SNOMED Code(s): 634067022 ICD Code: S32.010A - WEDGE COMPRESSION FRACTURE OF FIRST LUMBAR VERTEBRA, INIT Status: Acute Priority: High Qualifiers: Encounter type: subsequent encounter Fracture type: closed Fracture healing: with delayed healing Qualified Code(s): S32.010G - Wedge compression fracture of first lumbar vertebra, subsequent encounter for fracture with delayed healing - Patient Summary/Data Complications: none Hospital Course: Hospital course uneventful. Patient's pain controlled with IV Fentanyl but still required assistance of staff for cares and transfers. Disoriented to person and place but pleasant. No new changes during stay. Will transfer to [facility] for ongoing therapy, pain control and assistance. - Patient Instructions Diet: Usual Diet as Tolerated Activity: As Tolerated - Discharge Plan Home Medications: Home Meds Ferrous Sulfate 325 mg PO DAILY 12/17/16 [History] Hydrocodone/Acetaminophen [[place] 5-325] 1 tab PO TID 12/17/16 [History] Magnesium Hydroxide [Milk of Magnesia] 15 ml PO DAILY PRN 12/17/16 [History] Naproxen Sodium [Aleve] 220 mg PO BID 12/17/16 [History] Polyethylene Glycol 3350 [Miralax] 17 gm PO DAILY 12/17/16 [History] Pravastatin [Pravachol] 20 mg PO DAILY 12/17/16 [History] Sennosides/Docusate Sodium [Stool Softener-Laxative] 8.6 mg PO ASDIRECTED [History] predniSONE [Prednisone] 5 mg PO DAILY 12/17/16 [History] Forms: ED Department Discharge Referrals: PCP,None [Ordering Only Provider] - - Discharge Summary/Plan Comment DC Time >30 min.: Yes Discharge Summary/Plan Comment: Patient transferred to [facility]. Continue PT and OT. Pain meds as needed. Time for exam, orders and documentation 40 minutes. - General Info Date of Service: 12/22/16 Admission Dx/Problem (Free Text: Back Pain Functional Status: Reports: Pain Controlled, Tolerating Diet, Ambulating - Review of Systems General: Reports: Weakness HEENT: Reports: No Symptoms Pulmonary: Denies: Shortness of Breath, Cough Cardiovascular: Denies: Chest Pain, Lightheadedness Gastrointestinal: Denies: Nausea, Vomiting Genitourinary: Reports: No Symptoms Musculoskeletal: Reports: Back Pain Skin: Reports: No Symptoms Neurological: Reports: Confusion - Patient Data Vitals - Most Recent: Last Vital Signs Temp 97.9 F 12/22/16 07:28 Pulse 84 12/22/16 07:28 Resp 16 12/22/16 07:28 BP 161/98 H 12/22/16 07:28 Pulse Ox 96 12/22/16 07:28 Weight - Most Recent: 144 lb 6.4 oz Med Orders - Current: Current Medications Discontinued Medications Acetaminophen (Tylenol) 650 mg PO Q4H PRN PRN Reason: Pain (Mild 1-3)/fever Hydrocodone Bitart/Acetaminophen ([place] 325-5 Mg) 1 - 2 tab PO Q6H PRN PRN Reason: Pain Last Admin: 12/22/16 08:00 Dose: 2 tab Enoxaparin Sodium (Lovenox) 30 mg SUBCUT Q24H [facility] Last Admin: 12/22/16 07:59 Dose: 30 mg Fentanyl (Sublimaze) 25 mcg IVPUSH Q12H [facility] Last Admin: 12/22/16 08:01 Dose: Not Given Fentanyl (Sublimaze) 25 mcg IVPUSH ONETIME ONE Stop: 12/17/16 12:36 Last Admin: 12/17/16 13:46 Dose: Not Given Ferrous Sulfate (Ferrous Sulfate) 324 mg PO DAILY [facility] Last Admin: 12/22/16 07:59 Dose: 324 mg Magnesium Hydroxide (Milk Of Magnesia) 15 ml PO DAILY PRN PRN Reason: Constipation Polyethylene Glycol (Miralax) 17 gm PO DAILY [facility] Last Admin: 12/22/16 07:59 Dose: 17 gm Prednisone (Prednisone) 5 mg PO DAILY [facility] Last Admin: 12/22/16 07:59 Dose: 5 mg Senna/Docusate Sodium (Senna Plus) 1 tab PO DAILY [facility] Last Admin: 12/22/16 07:59 Dose: 1 tab Simvastatin (Zocor) 10 mg PO BEDTIME [facility] Last Admin: 12/21/16 19:31 Dose: 10 mg Sodium Chloride (Saline Flush) 10 ml FLUSH ASDIRECTED PRN PRN Reason: Keep Vein Open Tuberculin PPD (Aplisol) 5 unit IDERM ONETIME ONE Stop: 12/18/16 10:39 Last Admin: 12/18/16 11:44 Dose: 5 unit - Exam General: Reports: Alert, Oriented (person only) HEENT: Reports: Mucous Membr. Moist/[place] Neck: Reports: Supple Lungs: Reports: Clear to Auscultation, Normal Respiratory Effort Cardiovascular: Reports: Regular Rate, Regular Rhythm GI/Abdominal Exam: Normal Bowel Sounds, Soft, Non-Tender Back Exam: Reports: Normal Inspection, Vertebral Tenderness Skin: Reports: Warm, Dry Neurological: Reports: No New Focal Deficit *Q Meaningful Use (DIS) - VTE *Q VTE Criteria *Q: - Stroke *Q Stroke Criteria *Q: - AMI *Q AMI Criteria *Q:
== END 2016-12-22 10:00 | DRG 552 ==
LOC: CC.ED 09:53 → UNDOADMIN 12:22 → CC.MS 12:22
PROVIDERS: ADMIT Physician Assistant Medical; ATTEND Family Medicine
DX: S32.020A Wedge compression fracture of second lumbar vertebra, initial encounter for closed fracture (principal); S32.010A Wedge compression fracture of first lumbar vertebra, initial encounter for closed fracture; R41.0 Disorientation, unspecified; E78.00 Pure hypercholesterolemia, unspecified; M19.90 Unspecified osteoarthritis, unspecified site; S32.020G Wedge compression fracture of second lumbar vertebra, subsequent encounter for fracture with delayed healing; D64.9 Anemia, unspecified; S32.010G Wedge compression fracture of first lumbar vertebra, subsequent encounter for fracture with delayed healing; G89.11 Acute pain due to trauma; F03.90 Unspecified dementia, unspecified severity, without behavioral disturbance, psychotic disturbance, mood disturbance, and anxiety; Z91.81 History of falling; Z74.2 Need for assistance at home and no other household member able to render care; W19.XXXA Unspecified fall, initial encounter
CPT/HCPCS: 36415; 80048; 81001; 85025; 86140; 86580; 97110-GP; 97161-GP; 99284; A9270-GY; J1650; J3010